=== PATIENT | male | born 1985 | race Hispanic/Latino ===

== ENCOUNTER 2018-08-06 19:26 | Emergency (ER) | payer SELFPAY ==
[~2018-08-06 19:26] MED LIST: ISOVUE-370 76%-LOCM 1 ML ONE
[2018-08-06] MEDS ORDERED: Acetaminophen 500 MG TAB ONE (19:41)
[2018-08-06 19:49] LABS: #Basophils 0.1 thou/uL (0.0-0.2); #Eosinphils 0.2 thou/uL (0.0-0.7); #Lymphocytes 2.8 thou/uL (1.20-3.40); #Monocytes 1.1 thou/uL (0.11-0.59); #Neutrophils 9.4 thou/uL (1.40-6.50); %Basophils 1.1 % (0.0-1.0); %Eosinophils 1.6 % (0.0-10.0); %Lymphocytes 20.6 % (21.0-51.0); %Monocytes 8.2 % (0.0-10.0); %Neutrophils 68.6 % (42.0-75.0); Hemoglobin 17.5 g/dL (14.0-18.0); Mean Corpuscular HGB CONC 35.7 g/dL (32.0-36.0); Mean Corpuscular Hemoglobin 32.7 pg (27.0-31.0); Mean Corpuscular Volume 91.6 fL (78.0-98.0); Mean Platelet Volume 6.6 fL (7.4-10.4); Platelet Count 288 thou/uL (130-400); RBC Distribution Width 12.3 % (11.5-14.5); Red Blood Cell (RBC) Count 5.35 mill/uL (4.70-6.10); White Blood Cell (WBC) Count 13.6 thou/uL (4.8-10.8)
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
[2018-08-06] MEDS ORDERED: Lorazepam 2 MG/ML VIAL ONE (19:54)
[2018-08-06 19:56] LABS: PTT 25.7 SEC (22.9-36.1); Prothrombin Time 12.9 SEC (12.0-14.7)
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
[2018-08-06 20:12] LABS: ALT (SGPT) 24 U/L (8-55); AST (SGOT) 24 U/L (5-34); Albumin 4.4 g/dL (3.5-5.0); Alkaline Phosphatase 81 U/L (40-150); Anion Gap 19 mmol/L (10-20); BUN (Urea Nitrogen) 10 mg/dL (8.9-20.6); Bilirubin, Total 0.6 mg/dL (0.2-1.2); Calc. Creatinine Clearance 0 mL/min (70-130); Calcium 8.9 mg/dL (7.8-10.44); Carbon Dioxide 18 mmol/L (22-29); Chloride 105 mmol/L (98-107); Estimated GFR-MDRD 77; Globulin 2.9 g/dL (2.4-3.5); Glucose 79 mg/dL (70-105); Lipase 15 U/L (8-78); Potassium 3.6 mmol/L (3.5-5.1); Protein, Total 7.3 g/dL (6.0-8.3); Sodium 138 mmol/L (136-145)
[2018-08-06 20:21] LABS: Bilirubin Negative (Negative); Blood, Urine Negative (Negative); Clarity CLEAR (Clear); Glucose, Urine (Dipstick) Negative (Negative); Leukocyte Negative (Negative); Nitrite Negative (Negative); Protein, Urine (Dipstick) Negative (Neg-Trace); Urobilinogen 0.2 mg/dL (0.2-1.0); pH, Urine 7.5 (5.0-9.0)
--- NOTE | 2018-08-06 20:23 | CT ---
NONCONTRAST HEAD CT: History: Trauma. Pain. Comparison: None. FINDINGS: No parenchymal hemorrhage. No extraaxial hematoma. No midline shift. Basilar cisterns are patent. Bra in volume is age appropriate. Cortical sarah white matter differentiation is preserved. The ventricles and sulci are patent. Calvarium is intact. Adequate aeration of the sinuses and mastoid air cells. IMPRESSION: 1. No acute intracranial process. 2. No intracranial post-traumatic sequellae. POS: [facility]
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
== END 2018-08-06 20:42 | disposition home or self-care (01) ==
LOC: ERS 19:26
DX: S06.0X9A Concussion with loss of consciousness of unspecified duration, initial encounter (principal); S70.01XA Contusion of right hip, initial encounter; F32.9 Major depressive disorder, single episode, unspecified; F41.9 Anxiety disorder, unspecified; F43.10 Post-traumatic stress disorder, unspecified; Z79.899 Other long term (current) drug therapy; V09.9XXA Pedestrian injured in unspecified transport accident, initial encounter; Y92.411 Interstate highway as the place of occurrence of the external cause
CPT/HCPCS: 36415; 70450; 71260; 72125; 72170; 74177; 80053; 81003; 83690; 85025; 85610; 85730; 96374; G0390; J2060

== ENCOUNTER 2018-09-25 06:08 | Emergency (ER) | payer SELFPAY ==
[2018-09-25] MEDS ORDERED: Ondansetron PF 4 MG/2 ML Vial ONE ×2 (06:14→06:42)
[2018-09-25] MEDS ORDERED: Fentanyl 100 MCG/2 ML VIAL ONE (06:17)
[2018-09-25] MEDS ORDERED: Lorazepam 2 MG/ML VIAL ONE (06:29)
[2018-09-25 06:33] LABS: #Basophils 0.1 thou/uL (0.0-0.2); #Eosinphils 0.2 thou/uL (0.0-0.7); #Lymphocytes 2.5 thou/uL (1.20-3.40); #Monocytes 0.8 thou/uL (0.11-0.59); %Basophils 0.9 % (0.0-1.0); %Eosinophils 2.7 % (0.0-10.0); %Lymphocytes 29.1 % (21.0-51.0); %Monocytes 9.4 % (0.0-10.0); %Neutrophils 57.9 % (42.0-75.0); Mean Corpuscular HGB CONC 35.6 g/dL (32.0-36.0); Mean Corpuscular Hemoglobin 32.6 pg (27.0-31.0); Mean Corpuscular Volume 91.5 fL (78.0-98.0); Mean Platelet Volume 6.4 fL (7.4-10.4); Platelet Count 274 thou/uL (130-400); RBC Distribution Width 11.7 % (11.5-14.5); Red Blood Cell (RBC) Count 5.52 mill/uL (4.70-6.10); White Blood Cell (WBC) Count 8.7 thou/uL (4.8-10.8)
[2018-09-25 06:39] LABS: PTT 25.1 SEC (22.9-36.1); Prothrombin Time 12.9 SEC (12.0-14.7)
[2018-09-25 06:53] LABS: ALT (SGPT) 27 U/L (8-55); AST (SGOT) 19 U/L (5-34); Albumin 4.5 g/dL (3.5-5.0); Alkaline Phosphatase 79 U/L (40-150); Anion Gap 13 mmol/L (10-20); BUN (Urea Nitrogen) 12 mg/dL (8.9-20.6); Bilirubin, Total 1.1 mg/dL (0.2-1.2); Calc. Creatinine Clearance 0 mL/min (70-130); Calcium 9.5 mg/dL (7.8-10.44); Carbon Dioxide 23 mmol/L (22-29); Chloride 107 mmol/L (98-107); Estimated GFR-MDRD 79; Globulin 2.6 g/dL (2.4-3.5); Glucose 96 mg/dL (70-105); Potassium 3.8 mmol/L (3.5-5.1); Protein, Total 7.1 g/dL (6.0-8.3); Sodium 139 mmol/L (136-145)
[2018-09-25 06:54] LABS: Acetaminophen Less than 6.0 mcg/mL (10.0-30.0); Alcohol Less than 10 mg/dL (Less than 10); Salicylate Less than 8.0 mg/dL (15.0-30.0)
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
--- NOTE | 2018-09-25 08:49 | RAD ---
LEFT ELBOW 4 VIEW SERIES: INDICATION: Posttraumatic pain. FINDINGS: There is a postoperative screw involving the distal, medial humerus. Overlying IV catheter tubing is present. No fracture, dislocation, or joint capsular distention identified. There is osteoarthriti s which may be posttraumatic, given patient's age. IMPRESSION: Chronic findings of the left elbow without evidence of acute fracture identified. POS: [facility]
[2018-09-25] MEDS ORDERED: ISOVUE-370 76%-LOCM 1 ML ONE (11:17)
== END 2018-09-25 08:19 | disposition home or self-care (01) ==
LOC: ERS 06:08
DX: M54.2 Cervicalgia (principal); M25.552 Pain in left hip; M25.522 Pain in left elbow; F43.10 Post-traumatic stress disorder, unspecified; F41.9 Anxiety disorder, unspecified; F32.9 Major depressive disorder, single episode, unspecified; V04.99XA Pedestrian with other conveyance injured in collision with heavy transport vehicle or bus, unspecified whether traffic or nontraffic accident, initial encounter
CPT/HCPCS: 36415; 70450; 71260; 72125; 74177; 80053; 80307; 85025; 85610; 85730; 86850; 86900; 86901; 96374; J2060; J2405; J3010

== ENCOUNTER 2019-03-02 17:53 | Emergency (ER) | payer SELFPAY ==
[2019-03-02] MEDS ORDERED: Ondansetron PF 4 MG/2 ML Vial ONE (18:08)
--- NOTE | 2019-03-02 18:24 | CT ---
CT Brain WO Con History: Fall Comparison: None. Findings: No acute hemorrhage or infarct. No midline shift or mass effect. Ventricular size and extra -axial CSF spaces are normal. Calvarium is intact. Paranasal sinuses and mastoids are clear. Small soft tissue nodule along the rig ht upper eyelid. Impression: No acute intracranial abnormality.
--- NOTE | 2019-03-02 18:26 | CT ---
CT Cervical Spine WO Con History: Fall Comparison: CT cervical spine September 25, 2018 Findings: The odontoid process is intact. The occipital condyles are intact. No acute fracture or mal alignment of the cervical spine. Circumflex ventral disc osteophyte complex at/C7 with mild indentation of the thecal sac. No acute traumatic facet joint widening. Transverse processes are intact. Lung apices are clear. Paraspinal soft tissues are unremarkable. No prevertebral hematoma. Impression: No acute fracture or malalignment of the cervical spine.
--- NOTE | 2019-03-02 18:46 | CT ---
CT Chest Abd Pelvis W Con History: Fall Comparison: CT September 25, 2018 Findings: Seen only on the tomogram is a possible fracture of the left clavicle. This is age indeterm inant and not interrogated on the CT portion of the exam. The lungs are clear. No pneumothorax. No effusion. No contusion. Motion artifact through the sternum. No definite fracture. No thoracic spine or lumbar spine fracture . Osseous pelvis is intact. No acute displaced rib fracture. Costal cartilages appear to be intact. Lumbar spine transverse processes are intact. Femoral heads and necks are intact. No SI joint widenin g nor pubic symphysis widening. No acute aortic injury. No free intraperitoneal gas or fluid. No splenic injury. No liver injury. No retroperitoneal fluid. Small hypodensity inferior pole right k idney incompletely evaluated due to motion. Impression: No acute traumatic abnormality within the chest, abdomen, or pelvis given limitations of motion. Likely chronic left distal clavicular fracture.
[2019-03-02 18:54] LABS: Bilirubin Negative (Negative); Blood, Urine Negative (Negative); Clarity CLEAR (Clear); Glucose, Urine (Dipstick) Negative (Negative); Leukocyte Trace (Negative); Nitrite Negative (Negative); Protein, Urine (Dipstick) 30 mg/dL (Neg-Trace); Specific Gravity, Urine 1.039 (1.002-1.036)
[2019-03-02 18:55] LABS: Bacteria/HPF None Seen HPF (None Seen); Hyaline Casts/LPF 4-6 HYALINE CAST LPF (0-3 Hyaline); RBC/HPF 0-3 HPF (0-3); Squamous Epithelial None Seen HPF (0-3)
[2019-03-02 19:02] LABS: #Basophils 0.1 thou/uL (0.0-0.2); #Eosinphils 0.2 thou/uL (0.0-0.7); #Lymphocytes 2.6 thou/uL (1.20-3.40); #Monocytes 0.8 thou/uL (0.11-0.59); #Neutrophils 7.2 thou/uL (1.40-6.50); %Basophils 0.8 % (0.0-1.0); %Eosinophils 1.5 % (0.0-10.0); %Lymphocytes 23.7 % (21.0-51.0); %Monocytes 7.7 % (0.0-10.0); %Neutrophils 66.3 % (42.0-75.0); Hemoglobin 15.8 g/dL (14.0-18.0); Mean Corpuscular HGB CONC 34.9 g/dL (32.0-36.0); Mean Corpuscular Hemoglobin 32.7 pg (27.0-31.0); Mean Corpuscular Volume 93.5 fL (78.0-98.0); Mean Platelet Volume 6.8 fL (7.4-10.4); Platelet Count 244 thou/uL (130-400); Red Blood Cell (RBC) Count 4.84 mill/uL (4.70-6.10); White Blood Cell (WBC) Count 10.9 thou/uL (4.8-10.8)
[2019-03-02 19:04] LABS: Amphetamine Not Detected (NotDetected); Barbiturates Screen Not Detected (NotDetected); Benzodiazepine Screen Not Detected (NotDetected); Cocaine Metabolite Screen Not Detected (NotDetected); Medtox Control Line Valid? VALID (VALID); Medtox Reader # READER 4; Methadone Not Detected (NotDetected); Methamphetamine Not Detected (NotDetected); Opiate Screen Not Detected (NotDetected); Oxycodone Screen Not Detected (NotDetected); Phencyclidine (PCP) Not Detected (NotDetected); THC/Cannabinoid Screen Not Detected (NotDetected); Tricyclic Screen Not Detected (NotDetected)
[2019-03-02 19:16] LABS: ALT (SGPT) 17 U/L (8-55); AST (SGOT) 15 U/L (5-34); Alkaline Phosphatase 67 U/L (40-150); Anion Gap 12 mmol/L (10-20); BUN (Urea Nitrogen) 8 mg/dL (8.9-20.6); Bilirubin, Total 0.9 mg/dL (0.2-1.2); Calc. Creatinine Clearance 0 mL/min (70-130); Calcium 8.5 mg/dL (7.8-10.44); Carbon Dioxide 19 mmol/L (22-29); Chloride 110 mmol/L (98-107); Estimated GFR-MDRD Greater than 90; Globulin 2.2 g/dL (2.4-3.5); Glucose 94 mg/dL (70-105); Potassium 3.3 mmol/L (3.5-5.1); Protein, Total 6.2 g/dL (6.0-8.3); Sodium 138 mmol/L (136-145)
[2019-03-02 19:17] LABS: Acetaminophen Less than 6.0 mcg/mL (10.0-30.0); Alcohol Less than 10 mg/dL (Less than 10); Salicylate Less than 8.0 mg/dL (15.0-30.0)
--- NOTE | 2019-03-02 19:18 | RAD ---
XR Knee Rt 4 View STANDARD History: Fall Comparison: None. Findings: No acute fracture or malalignment. No significant joint effusion. Impression: No acute osseous abnormality.
--- NOTE | 2019-03-02 19:55 | RAD ---
XR Knee Lt 4 View STANDARD History: Fall Comparison: Radiograph September 25, 2018 Findings: Mild soft tissue swelling. No fracture. No malalignment. No acute osseous abnormality. Impression: Soft tissue swelling without fracture or malalignment.
--- NOTE | 2019-03-02 19:55 | RAD ---
XR Chest 1 View Portable History: Fall Comparison: None. Findings: Lungs are clear. No pneumothorax. No effusion. No acute osseous abnormality. Old left clavi cular fracture. Impression: No acute intrathoracic abnormality.
[2019-03-02] MEDS ORDERED: Acetaminophen 500 MG TAB ONE (20:37)
[2019-03-02] MEDS ORDERED: Adacel (T-DAP) 0.5 ML SYRINGE ONE (20:37)
[2019-03-02] MEDS ORDERED: Lidocaine 1% (PF) 30 ML VIAL ONE (21:30)
--- NOTE | 2019-03-03 12:30 | EKG ---
Test Reason : SYNCOPY Blood Pressure : / mmHG Vent. Rate : 058 BPM Atrial Rate : 058 BPM P-R Int : 108 ms QRS Dur : 094 ms QT Int : 424 ms P-R-T Axes : 061 049 033 degrees QTc Int : 416 ms Sinus bradycardia with short DE Otherwise normal ECG Confirmed by NABILA ODOM ([id number]), photograph editor FCO RIVERA ([id number]) on 03/03/2019 12:30:34 PM Referred By: Confirmed By:NABILA ODOM
[2019-03-04 23:35] LABS: Chlam.trachomatis by PCR,Urine Not Detected (NotDetected)
== END 2019-03-02 22:11 | disposition home or self-care (01) ==
LOC: ERS 17:53
DX: S06.0X9A Concussion with loss of consciousness of unspecified duration, initial encounter (principal); S61.011A Laceration without foreign body of right thumb without damage to nail, initial encounter; F43.10 Post-traumatic stress disorder, unspecified; W17.89XA Other fall from one level to another, initial encounter
CPT/HCPCS: 12001; 36415; 70450; 71045; 71260; 72125; 74177; 80053; 80306; 80307; 81003; 81015; 85025; 87086; 87491; 87591; 90471; 90715; 93005; 96361; 96374; G0390; J2001; J2405; Q9966